=== PATIENT | male | born 1980 | race American Indian/Alaskan Native ===

== ENCOUNTER 2017-04-07 04:35 | Emergency (ER) | payer SELFPAY ==
[2017-04-07 04:54] VITALS: BP 148/102
[2017-04-07] MEDS ORDERED: ROCEPHIN IM ONE (05:20)
[2017-04-07] MEDS ORDERED: TYLENOL PO ONE (05:20)
[2017-04-07] MEDS ORDERED: ZITHROMAX PO ONE (05:20)
[2017-04-07] MEDS ORDERED: XYLOCAINE 1% MPF 5 mL INFILTRATI ONE (05:20)
[2017-04-07 05:21] LABS: Bilirubin,Urine NEG (Negative); Blood,Urine NEG (Negative); Ketones,Urine TR mg/dL (Negative); Leukocyte Esterase,Urine NEG (Negative); Mucus,Urine FEW /HPF; Nitrite,Urine NEG (Negative); Protein,Urine <15 mg/dL mg/dL (Negative); Urobilinogen,Urine < 2.0 mg/dL (<2.0)
--- NOTE | 2017-04-07 05:21 | Emergency Department Report ---
ED General Adult HPI - General Chief complaint: Urogenital-Male Stated complaint: ABD PAIN Time Seen by Provider: 04/07/17 04:55 Source: patient, RN notes reviewed Mode of arrival: Ambulatory Limitations: No Limitations - History of Present Illness Initial comments: This is a 36-year-old male. He is previously known to me. He does not have a primary care doctor. He has no chronic medical conditions. He presents to the ER as his sexual partner recently was presumptively treated and diagnosed with pelvic inflammatory disease. Reports that he was not treated , and he is concerned that he may have an STD. He complains of left lower quadrant abdominal cramping for the past week. The pain decreases with NSAIDs. He does not have any aggravating factors. There is no headache, neck pain, chest pain. He denies testicular pain. He complains of dysuria. He denies discharge. He denies throat pain. He denies rectal pain. He reports that he is sexually active with one partner, does not work condoms. -: Gradual Location: abdomen, genitals Quality: aching Consistency: intermittent Improves with: medication, rest Worsens with: none Associated Symptoms: denies other symptoms - Related Data Previous Rx's Medication Instructions Recorded Last Taken Type Doxycycline [Vibramycin] 100 mg PO Q12HR #13 capsule 04/07/17 Unknown Rx Allergies Allergy/AdvReac Type Severity Reaction Status Date / Time No Known Allergies Allergy Unverified 04/07/17 04:38 ED Review of Systems ROS: Stated complaint: ABD PAIN Other details as noted in HPI Constitutional: denies: fever, malaise Eyes: denies: vision change ENT: denies: epistaxis Respiratory: denies: cough Cardiovascular: denies: chest pain Gastrointestinal: abdominal pain Genitourinary: dysuria. denies: urgency Musculoskeletal: denies: back pain Skin: denies: lesions Neurological: denies: weakness Psychiatric: denies: anxiety ED Past Medical Hx - Past Medical History Hx Asthma: Yes - Surgical History Past Surgical History?: No - Social History Smoking Status: Former Smoker - Medications Home Medications: Home Medications Medication Instructions Recorded Confirmed Last Taken Type Doxycycline [Vibramycin] 100 mg PO Q12HR #13 capsule 04/07/17 Unknown Rx ED Physical Exam - General Limitations: No Limitations General appearance: alert, in no apparent distress - Head Head exam: Present: atraumatic, normocephalic - Eye Eye exam: Present: normal appearance, EOMI. Absent: nystagmus - ENT ENT exam: Present: normal exam, normal orophraynx, mucous membranes moist, normal external ear exam - Neck Neck exam: Present: normal inspection, full ROM. Absent: tenderness, meningismus - Respiratory Respiratory exam: Present: normal lung sounds bilaterally. Absent: respiratory distress, wheezes, rales, rhonchi, stridor, chest wall tenderness, accessory muscle use, decreased breath sounds, prolonged expiratory - Cardiovascular Cardiovascular Exam: Present: regular rate, normal rhythm. Absent: systolic murmur, diastolic murmur, rubs, gallop - GI/Abdominal GI/Abdominal exam: Present: soft, normal bowel sounds. Absent: distended, tenderness, guarding, rebound, rigid, pulsatile mass - Rectal Rectal exam: Present: deferred - exam: Present: normal inspection. Absent: testicular tenderness External exam: Present: normal external exam, other (there is no testicular tenderness. There is normal testicular lie bilaterally. There is normal cremasteric reflex bilaterally.) - Extremities Exam Extremities exam: Present: normal inspection, full ROM, normal capillary refill. Absent: tenderness, pedal edema, joint swelling, calf tenderness - Back Exam Back exam: Present: normal inspection, full ROM. Absent: tenderness, CVA tenderness (R), CVA tenderness (L), muscle spasm, paraspinal tenderness, vertebral tenderness - Neurological Exam Neurological exam: Present: alert, oriented X3, normal gait, other (Extraocular movements intact. Tongue midline. No facial droop. Facial sensation intact to light touch in the V1, V2, V3 distribution bilaterally. 5 and 5 strength in 4 extremities.. Sensation is intact to light touch in 4 extremities.). Absent : motor sensory deficit - Psychiatric Psychiatric exam: Present: normal affect, normal mood - Skin Skin exam: Present: warm, dry, intact, normal color. Absent: rash ED Course Vital Signs 04/07/17 04:39 Temperature 97.6 F Pulse Rate 88 Respiratory 20 Rate Blood Pressure 148/102 O2 Sat by Pulse 99 Oximetry ED Medical Decision Making - Lab Data Vital Signs 04/07/17 04:39 Temperature 97.6 F Pulse Rate 88 Respiratory 20 Rate Blood Pressure 148/102 O2 Sat by Pulse 99 Oximetry Lab Results 04/07/17 Range/Units 04:54 Urine Bilirubin Neg (Negative) Urine RBC (Auto) 1.0 (0.0-6.0) /HPF - Medical Decision Making Differential diagnosis: Urethritis, STD exposure Assessment and plan: 36-year-old male with irritative urinary symptoms, recent sexual contacts who have been treated empirically for pelvic inflammatory disease. Patient is afebrile with reassuring vital signs. He is treated empirically with ceftriaxone and doxycycline. He should follow up as an outpatient with her primary care doctor. He will be discharged at this time. Return precautions are reviewed. Critical care attestation.: If time is entered above; I have spent that time in minutes in the direct care of this critically ill patient, excluding procedure time. ED Disposition Clinical Impression: Urethritis Disposition: - TO HOME OR SELFCARE Is pt being admited?: No Does the pt Need Aspirin: No Condition: Stable Instructions: Nonspecific Urethritis in Men (ED) Additional Instructions: Cultures were sent today, and results will be available next 3-5 days. Please have your primary care doctor call the medical records department to obtain your culture results. Take the antibiotic therapy as directed. Take the nausea medication and pain medication as directed. I recommend outpatient testing for sexually transmitted diseases, including hepatitis, syphilis and HIV. I also recommend that you abstain from sexual activity until you have completed her antibiotic therapy, a physician states that it is safe for you to resume sexual activity, and any partners that you have been sexually active with have been tested/treated/evaluated for sexual transmitted diseases. Please follow-up with physician within 3-5 days. I recommend that you return to the ER right away with worsening pain, migration of pain, intractable nausea/vomiting, inability tolerate liquid feeds. Referrals: KOREY DE LEÓN MD [Primary Care Provider] - 3-5 Days ALBERTO DEAL MD [Staff Physician] - 3-5 Days [facility] [Provider Group] - 3-5 Days [facility] [Outside] - 3-5 Days Forms: STI Treatment and Prevention
[2017-04-07] MEDS ORDERED: VIBRAMYCIN PO ONE (05:22)
[2017-04-07 05:23] LABS: WBC,Urine < 1.0 /HPF (0.0-6.0)
== END 2017-04-07 05:57 | disposition home or self-care (01) ==
LOC: ED 04:35
DX: N34.2 Other urethritis (principal); J45.909 Unspecified asthma, uncomplicated; Z87.891 Personal history of nicotine dependence
CPT/HCPCS: 81001; 87086; 87591; 96372; 99283; J0696